=== PATIENT | female | born 1960 | race Caucasian/White ===

== ENCOUNTER 2024-04-01 06:28 | Day surgery (SDC) | payer BC ==
[~2024-04-01 06:28] MED LIST: Midazolam 1 MG/ML 2 ML SDV ONE; fentaNYL 100 MCG/2 ML SDV ONE
[2024-04-01] MEDS ORDERED: Midazolam 1 MG/ML 2 ML SDV IV ONE (06:29)
[2024-04-01] MEDS ORDERED: fentaNYL 100 MCG/2 ML SDV IV ONE (06:29)
[2024-04-01] MEDS: Dextrose 5%-0.45% NaCl 1,000 ML IV SCH (06:33)
[2024-04-01] MEDS: fentaNYL 100 MCG/2 ML SDV IV ONE ×2 (07:55→07:56)
[2024-04-01] MEDS: Midazolam 1 MG/ML 2 ML SDV IV ONE ×6 (07:56→08:03)
== END 2024-04-01 09:30 | disposition home or self-care (01) ==
LOC: DL.ENDO 06:28
PROVIDERS: ATTEND Internal Medicine Gastroenterology
DX: Z12.11 Encounter for screening for malignant neoplasm of colon (principal); D12.4 Benign neoplasm of descending colon; K64.8 Other hemorrhoids; K57.30 Diverticulosis of large intestine without perforation or abscess without bleeding; I10 Essential (primary) hypertension
CPT/HCPCS: J2250; J3010; J7042